=== PATIENT | female | born 1960 | race Caucasian/White ===

== ENCOUNTER 2023-11-19 14:13 | Emergency (ER) | payer OTHER, SELFPAY ==
[2023-11-19 14:15] VITALS: BP 171/78
--- NOTE | 2023-11-19 15:11 | ED.GENMED ---
History of Present Illness
<Carolyn Juarez PA-C - Last Filed: 11/20/23 19:58>
General
Chief Complaint: Fall
Source: patient
Exam Limitations: none
Time Seen by Provider: 11/19/23 14:38
Nursing documentation reviewed up to this point in time: agreed with
Travel History
Have you had any contact with someone who has COVID-19?: No
Do you have any symptoms of coronavirus? Fever > 100 degrees, chills, cough, shortness of breath, sore throat, loss of taste or smell, muscle aches, or headache?: No
History of Present Illness
History of Present Illness:
Patient is a 62-year-old female presenting for evaluation following a trip and fall earlier today. She states that she was at home when she slipped on a rug in her living room falling backwards at around 1030 this morning. She states she came down
on her buttocks and right elbow. She did not hit her head or lose consciousness. She does endorse some whiplash type mechanism but no head strike. She was able to get herself up and has been feeling fine since. She is having some pain in her
lower back and pain in her right elbow. She denies any headache, nausea, vomiting, dizziness. She denies any pain with ambulating.
Phy Exam
<Carolyn Juarez PA-C - Last Filed: 11/20/23 19:58>
Physical Exam
Physical Exam:
General: In no apparent distress, non-toxic
Vitals: Hypertensive, otherwise vital signs stable, afebrile
HEENT: atraumatic, normocephalic; pupils equal round react light bilaterally, extraocular muscles intact, no tenderness to nasal bridge or surrounding orbits; protecting airway
Neck: appears supple, no cervical spine or midline spinal tenderness
CV: Regular rate and rhythm, heart sounds normal, no evidence of cyanosis
Resp: No evidence of respiratory distress, lungs clear
Abd: Soft, nontender, non-distended
Extremities: Hematoma on right elbow overlying olecranon, full active range of motion in elbow, full range of motion without tenderness in the right shoulder and right wrist, right upper extremity neurovascularly intact; no pain with
internal/external rotation of bilateral hips, strength 5 out of 5 in lower extremities, no other bony tenderness
Neuro: alert and oriented x [address] time, speech normal, no focal motor deficits,
Psych: Normal affect
Skin: Intact
Course
<Carolyn Juarez PA-C - Last Filed: 11/20/23 19:58>
Orders/Labs/Results
Orders:
Orders
11/19/23 15:12
Ibuprofen [Motrin] 400 mg PO NOW STA
Elbow, 3 View, Right [CR Elbow - Right Min 3 Views] Urgent
Comment:
Reason For Exam: fall, pain in right elbow
Vital Signs
Initial and Last Documented VS:
Initial Vital Signs
Temp Pulse Resp BP Pulse Ox
98.1 F 70 20 171/78 96
11/19/23 14:15 11/19/23 14:15 11/19/23 14:15 11/19/23 14:15 11/19/23 14:15
Last Documented Vital Signs
Temp Pulse Resp BP Pulse Ox
98.1 F 70 20 171/78 96
11/19/23 14:15 11/19/23 14:15 11/19/23 14:15 11/19/23 14:15 11/19/23 14:15
<Samuel Barahona DO - Last Filed: 11/19/23 15:38>
Orders/Labs/Results
Orders:
Orders
11/19/23 15:12
Ibuprofen [Motrin] 400 mg PO NOW STA
Elbow, 3 View, Right [CR Elbow - Right Min 3 Views] Urgent
Comment:
Reason For Exam: fall, pain in right elbow
Vital Signs
Initial and Last Documented VS:
Initial Vital Signs
Temp Pulse Resp BP Pulse Ox
98.1 F 70 20 171/78 96
11/19/23 14:15 11/19/23 14:15 11/19/23 14:15 11/19/23 14:15 11/19/23 14:15
Last Documented Vital Signs
Temp Pulse Resp BP Pulse Ox
98.1 F 70 20 17178 96
11/19/23 14:15 11/19/23 14:15 11/19/23 14:15 11/19/23 14:15 11/19/23 14:15
<Carolyn Juarez PA-C - Last Filed: 11/20/23 19:58>
MDM/Problems Addressed
Differential Diagnosis Includes:
Hematoma, contusion, sprain, fracture, lumbar strain, cervical muscle strain
MDM/Problems Addressed:
Patient is a 63-year-old female presenting for evaluation following fall earlier today. Has pain/hematoma in right elbow, and lower back pain. No head strike or loss of consciousness. Not on any blood thinners. Patient is hemodynamically stable.
Physical exam as documented above. She is neurologically intact. No C-spine or midline spinal tenderness. Bruising and swelling noted to right elbow with decent range of motion. Will check x-ray of right elbow. No signs of head trauma or
neurologic deficits�it was shared decision making to not obtain head CT at this time Ibuprofen for pain.
X-ray shows hematoma to right olecranon but no evidence of acute fracture or dislocation. Suspect likely elbow contusion and lumbar back sprain. She is stable for discharge with return precautions, NSAIDs for pain. Patient comfortable this plan.
All questions answered.
Chronic conditions affecting care:
N/A
Acute Exacerbation and/or Progression of Chronic Illness:
N/A
<Carolyn Juarez PA-C - Last Filed: 11/20/23 19:58>
*Radiology
Radiology exam reviewed: radiology read reviewed
*Pulse Oximetry
Patient hypoxic: no
*EKG
Interpreted by ED Provider?: NA
*Fieldwork Coordinator Interpretation
Rate: Fieldwork Coordinator- N/A
*Critical Care Note
Total Time (30-74mins, 75-104mins- exclusive of procedures): Not Applicable
ED Attending Note
<Carolyn Juarez PA-C - Last Filed: 11/20/23 19:58>
-
Portions of this chart may have been created with voice recognition software.� Occasional wrong word or��sound alike� substitutions may have occurred due to the inherent limitations of voice recognition software.
<Samuel Barahona DO - Last Filed: 11/19/23 15:38>
ED Attending Note
Patient seen and examined by attending physician: Yes
I performed the substantive portion of visit, reviewed & personally made and approve the management plan that is documented in note by myself or JIM.: Yes
ED Attending Note:
I have seen and evaluated the patient with a [id number] encounter. I have spoken to the advance practicer provider and involved in the medical history, the physical exam, medical decision making.
Evaluation and management service: agree unless noted differently below.
Results interpretation: agree unless noted differently below.
Focused HPI: 62-year-old female presenting with right elbow pain. Patient tripped backwards and landed on her right elbow. She denies head injury or numbness or tingling. Injury occurred at 10:30 AM. She denies headache, nausea or vomiting
Physical exam: Bruising and swelling to right olecranon. Distal extremity neurovascularly intact
Medical Decision Making: Given no head injury and no clinical signs of intracranial trauma, it was shared decision making to not obtain CT head. Patient given NSAIDs for the elbow pain will obtain x-ray
Discharge Plan
Departure
Patient Disposition: Home (Routine Discharge)
Date of Disposition: 11/19/23
Time of Disposition: 16:02
Patient with high blood pressure during this ER visit?: Yes
Condition: Good
Covid-19: Not Applicable
Discharge Problem:
Contusion of elbow, right, Lumbar back sprain
Instructions: Back Muscle Strain (DC), Contusion (DC), BLOOD PRESSURE
Prescriptions:
No Action
cetirizine [Zyrtec] 10 mg Tablet
10 mg PO DAILY
herbal drugs Capsule
1 cap PO DAILY
Rx Instructions:
500mg
bupropion HCl 150 mg Tablet Extended Release 24 Hr
150 mg PO DAILY
cholecalciferol (vitamin D3) [Vitamin D3] 25 mcg (1,000 unit) Tablet
25 mcg PO DAILY
Probiotic 100 billion cell Capsule
1 cap PO DAILY
acetaminophen [acetaminophen] 325 mg tablet
650 mg PO Q4HPRN PRN (Reason: mild pain) Qty: 1 0RF
ibuprofen 200 mg tablet
400 - 600 mg PO Q6HPRN PRN (Reason: moderate pain) Qty: 1 0RF
tramadol 50 mg tablet
25 - 50 mg PO Q6HPRN PRN (Reason: severe pain/breakthrough pain) Qty: 20 0RF
Referrals:
Judson Costa MD [Active] - As needed
Estella Lee MD [Family Provider] -
Activity Restrictions/Additional Instructions:
- Return to the emergency department with any severe pain, severe swelling of right elbow, numbness or tingling in right arm, significant low back pain, numbness/tingling/weakness in lower extremities, severe headache, intractable nausea or
vomiting, worsening in current symptoms, or any other concerns
-You can take Advil/Tylenol as needed for discomfort. You should apply ice to right elbow
-Follow-up with orthopedics if symptoms persist/worsen
Interventions
Interventions:
*Risk Screen - Suicide Last Done: 11/19/23 16:20
*General Assessment Last Done: 11/19/23 16:20
*Neglect/Abuse Screening Last Done: 11/19/23 16:20
ED- Fall Risk Assessment Last Done: 11/19/23 16:20
*ED COVID-19 Vaccine History Last Done: 11/19/23 16:20
*Nursing Disposition Last Done: 11/19/23 16:20
ED-Musculoskeletal Assessment Last Done: 11/19/23 15:20
ED- Neurological Assessment Last Done: 11/19/23 15:20
ED-Skin Assessment Last Done: 11/19/23 15:20
Discharge Date and Time
Discharge Date/Time: 11/19/23 16:20
[2023-11-19] MEDS: MOTRIN 400 MG PO (15:39)
== END 2023-11-19 16:20 | disposition home or self-care (01) ==
LOC: EMR 14:13
PROVIDERS: EMERGENCY PHYSICIAN Student in an Organized Health Care Education/Training Program; FAMILY PHYSICIAN Family Medicine
DX: S50.01XA Contusion of right elbow, initial encounter (principal); S33.5XXA Sprain of ligaments of lumbar spine, initial encounter; W01.0XXA Fall on same level from slipping, tripping and stumbling without subsequent striking against object, initial encounter; R03.0 Elevated blood-pressure reading, without diagnosis of hypertension
CPT/HCPCS: 99283; 73080

== ENCOUNTER → 2023-12-27 07:25 | Outpatient (REF) | payer OTHER, SELFPAY | LOC: RAD 07:25 | PROVIDERS: ATTENDING PHYSICIAN Family Medicine | DX: R79.89 Other specified abnormal findings of blood chemistry (principal) | CPT/HCPCS: 76536 ==

== ENCOUNTER → 2024-11-20 08:39 | Outpatient (REF) | payer OTHER, SELFPAY | LOC: HWWDC 08:39 | PROVIDERS: ATTENDING PHYSICIAN Family Medicine | DX: Z12.31 Encounter for screening mammogram for malignant neoplasm of breast (principal) | CPT/HCPCS: 77063; 77067 ==

== ENCOUNTER → 2025-01-19 09:33 | Outpatient (REF) | payer OTHER, SELFPAY | LOC: HWRAD 09:33 | PROVIDERS: ATTENDING PHYSICIAN Family Medicine | DX: Z00.00 Encounter for general adult medical examination without abnormal findings (principal); E04.1 Nontoxic single thyroid nodule | CPT/HCPCS: 76536 ==